=== PATIENT | female | born 1995 | race Caucasian/White ===

== ENCOUNTER 2016-11-25 02:56 | Emergency (ER) | payer BC ==
[~2016-11-25] VITALS: Ht 160 cm; Wt 34.5 kg
[2016-11-25 03:02] VITALS: TEMP 37.3; Ht 160 cm; Wt 34.5 kg
[2016-11-25] MEDS ORDERED: ONDANSETRON INJ 2 MG/ML 2 ML VIAL IV STA (03:42)
[2016-11-25] MEDS ORDERED: SODIUM CHLORIDE 0.9% 1000ML 1,000 ML IV STA ×2 (03:42→05:12)
[2016-11-25 03:45] VITALS: O2SAT 100
[2016-11-25 03:50] LABS: BASO % 0.1 %; BASO ABS # 0.01 K/uL (0-0.2); COMPLETE YES; EOS % 0.1 %; HEMATOCRIT 38.5 % (37-47); IG% 0.3 %; LYMPH % 9.9 %; LYMPH ABS # 1.23 K/uL (1.2-3.4); MEAN CELL VOLUME 84.4 fL (80-100); MEAN CORPUSCULAR HEMOGLOBIN 28.3 pg (25-34); MEAN CORPUSCULAR HGB CONC 33.5 g/dl (32-36); MEAN PLATELET VOLUME 10.7 fL (7.4-10.4); MONO % 7.6 %; PLATELET COUNT 163 K/uL (130-400); RED BLOOD COUNT 4.56 M/uL (4.2-5.4); WHITE BLOOD COUNT 12.43 K/uL (4.8-10.8)
[2016-11-25 03:59] LABS: ALT/SGPT 19 U/L (12-78); AST/SGOT 20 U/L (15-37); BLOOD UREA NITROGEN 10 mg/dl (7-18); CALCIUM 8.9 mg/dl (8.5-10.1); CARBON DIOXIDE 25 mmol/L (21-32); CHLORIDE 109 mmol/L (98-107); CREATININE 0.82 mg/dl (0.60-1.20); GLUCOSE 93 mg/dl (70-99); MAGNESIUM 2.1 mg/dl (1.8-2.4); POTASSIUM 3.2 mmol/L (3.5-5.1); SODIUM 144 mmol/L (136-145)
[2016-11-25 04:10] LABS: ALB/GLOB RATIO 1.1 (0.9-2); ALKALINE PHOSPHATASE 56 U/L (45-117); CKMB/CK RATIO 0.6 (0-3.0)
[2016-11-25] MEDS ORDERED: CLR10 PO (04:20)
[2016-11-25] MEDS ORDERED: MISC4CAP PO (04:20)
[2016-11-25] MEDS ORDERED: LANS30CA12 PO (04:20)
[2016-11-25 05:02] LABS: URINE APPEARANCE CLEAR (CLEAR); URINE BILIRUBIN NEG (NEG); URINE COLOR YELLOW; URINE EPITHELIAL CELL AUTO >30 /lpf (0-5); URINE NITRITE NEG (NEG); URINE SPECIFIC GRAVITY 1.022 (1.000-1.030); UROBILINOGEN NEG (NEG); ZZUR CULT IF INDIC CLEAN CATCH YES
[2016-11-25 05:06] LABS: MANUAL MICROSCOPIC REQUIRED? NO; REVIEW REQ? YES
[2016-11-25 05:20] LABS: BENZODIAZEPINE, URINE NEG (NEG); COCAINE,URINE NEG (NEG); PHENCYCLIDINE, URINE NEG (NEG)
[2016-11-25 06:31] VITALS: BP 106/67; PULSE 126; O2SAT 98
[2016-11-25] MEDS ORDERED: PHENERGAN 25MG HOMEPACK PO ONE (06:45)
[2016-11-25] MEDS ORDERED: AMOXICILLIN 250 MG CAP PO STA (06:47)
[2016-11-25] MEDS ORDERED: PROM1SUP19 PR (06:55)
--- NOTE | 2016-11-25 06:55 | EMERGENCY ROOM VISIT NOTE ---
History First contact with patient: 03:33 Chief Complaint: VOMITING Stated Complaint: VOMITING Nursing Triage Summary: Pt has been vomiting since 2299. History of Present Illness The patient is a 21 year old female who presents to the Emergency Department via EMS for evaluation of her nausea and vomiting. The patient reports a significant past medical history of intractable vomiting. Most recently, she is been treated for gastritis by [facility]. She reports she typically uses rectal Phenergan, but she does not have a prescription at this point. She developed nausea and vomiting 9 PM. She reports persistent symptoms since. She denies any blood in her vomit or stool. The patient complains of some mild discomfort in her epigastrium after vomiting. She rates her current discomfort as a 4/10. She denies any fevers, chills, headaches, chest pain, palpitations, shortness of breath, hematochezia, melena, hematuria, or dysuria. She denies any alcohol use or recent marijuana use. She denies any previous abdominal surgeries. Review of Systems A complete 10-point Review of Systems was discussed with the patient, with pertinent positives and negatives listed in the History of Present Illness. All remaining Review of Systems questions can be considered negative unless otherwise specified. Social History Smoking Status: Never Smoker Smokeless Tobacco Use: No Drug Use: none Marital Status: single Housing Status: lives with roommate Occupation Status: [employer] student Current/Historical Medications Scheduled Lansoprazole (Prevacid), 30 MG PO DAILY Loratadine (Claritin), 10 MG PO DAILY Probiotic Product (Align), 4 MG PO DAILY Scheduled PRN Promethazine (Phenergan Suppository), 25 MG NV Q4H PRN for Nausea Allergies Coded Allergies: Coconut (Verified Allergy, Intermediate, GI SYMPTOMS, 11/25/16) POLLEN (Verified Allergy, Intermediate, NASAL CONGESTION, 11/25/16) Physical Exam Vital Signs Date Time Temp Pulse Resp B/P Pulse Ox O2 Delivery O2 Flow Rate FiO2 11/25/16 06:31 126 18 106/67 98 Room Air 11/25/16 05:21 128 16 113/70 97 Room Air 11/25/16 03:58 114 11/25/16 03:57 114 17 116/72 100 Room Air 113 114/70 126 102/64 11/25/16 03:45 100 Room Air 11/25/16 03:02 37.3 110 18 126/81 99 Room Air Pain Rating (0-10): 4 Physical Exam VITAL SIGNS - Vital signs and nursing notes were reviewed. GENERAL - 21-year-old female appearing her stated age who is in no acute distress. Communicates well with provider and answers questions appropriately. LUNGS - Chest wall symmetric without accessory muscle use, intercostals retractions, or central cyanosis. Normal vesicular breath sounds CTA B/L. No wheezes, rales, or rhonchi appreciated. CARDIAC - RRR with S1/S2. No murmur, rubs, or gallops appreciated. ABDOMEN - Abdominal contour flat and without pulsations or visible masses. BS normoactive all four quadrants. Mild tenderness to palpation appreciated in the epigastrium. No guarding. No Rebound Tenderness. Negative Rovsing's. Negative Solis's. No palpable masses, hepatosplenomegaly, or ascites noted. PSYCH - A&Ox3 and cooperates fully with examiner. Pt is very pleasant and interacts well with examiner. Medical Decision & Procedures Laboratory Results 11/25/16 03:07 Red Blood Count 4.56, Mean Corpuscular Volume 84.4, Mean Corpuscular Hemoglobin 28.3, Mean Corpuscular Hemoglobin Concent 33.5, Mean Platelet Volume 10.7, Neutrophils (%) (Auto) 82.0, Lymphocytes (%) (Auto) 9.9, Monocytes (%) (Auto) 7.6, Eosinophils (%) (Auto) 0.1, Basophils (%) (Auto) 0.1, Neutrophils # (Auto) 10.19, Lymphocytes # (Auto) 1.23, Monocytes # (Auto) 0.95, Eosinophils # (Auto) 0.01, Basophils # (Auto) 0.01 11/25/16 03:07 Test 11/25/16 03:07 11/25/16 04:40 White Blood Count 12.43 K/uL (4.8-10.8) Red Blood Count 4.56 M/uL (4.2-5.4) Hemoglobin 12.9 g/dL (12.0-16.0) Hematocrit 38.5 % (37-47) Mean Corpuscular Volume 84.4 fL (80-100) Mean Corpuscular Hemoglobin 28.3 pg (25-34) Mean Corpuscular Hemoglobin Concent 33.5 g/dl (32-36) Platelet Count 163 K/uL (130-400) Mean Platelet Volume 10.7 fL (7.4-10.4) Neutrophils (%) (Auto) 82.0 % Lymphocytes (%) (Auto) 9.9 % Monocytes (%) (Auto) 7.6 % Eosinophils (%) (Auto) 0.1 % Basophils (%) (Auto) 0.1 % Neutrophils # (Auto) 10.19 K/uL (1.4-6.5) Lymphocytes # (Auto) 1.23 K/uL (1.2-3.4) Monocytes # (Auto) 0.95 K/uL (0.11-0.59) Eosinophils # (Auto) 0.01 K/uL (0-0.5) Basophils # (Auto) 0.01 K/uL (0-0.2) RDW Standard Deviation 40.5 fL (36.4-46.3) RDW Coefficient of Variation 13.2 % (11.5-14.5) Immature Granulocyte % (Auto) 0.3 % Immature Granulocyte # (Auto) 0.04 K/uL (0.00-0.02) Anion Gap 10.0 mmol/L (3-11) Est Creatinine Clear Calc Drug Dose 59.6 ml/min Estimated GFR () 119.4 Estimated GFR (Non- 103.0 BUN/Creatinine Ratio 12.0 (10-20) Calcium Level 8.9 mg/dl (8.5-10.1) Magnesium Level 2.1 mg/dl (1.8-2.4) Total Bilirubin 0.5 mg/dl (0.2-1) Aspartate Amino Transf (AST/SGOT) 20 U/L (15-37) Alanine Aminotransferase (ALT/SGPT) 19 U/L (12-78) Alkaline Phosphatase 56 U/L (45-117) Total Creatine Kinase 104 U/L (26-192) Creatine Kinase MB 0.6 ng/ml (0.5-3.6) Creatine Kinase MB Ratio 0.6 (0-3.0) Troponin I < 0.015 ng/ml (0-0.045) Total Protein 7.7 gm/dl (6.4-8.2) Albumin 4.0 gm/dl (3.4-5.0) Globulin 3.7 gm/dl (2.5-4.0) Albumin/Globulin Ratio 1.1 (0.9-2) Lipase 159 U/L (73-393) Thyroid Stimulating Hormone (TSH) 1.210 uIu/ml (0.300-4.500) Urine Color YELLOW Urine Appearance CLEAR (CLEAR) Urine pH 8.0 (4.5-7.5) Urine Specific [place] 1.022 (1.000-1.030) Urine Protein NEG (NEG) Urine Glucose (UA) NEG (NEG) Urine Ketones 3+ (NEG) Urine Occult Blood NEG (NEG) Urine Nitrite NEG (NEG) Urine Bilirubin NEG (NEG) Urine Urobilinogen NEG (NEG) Urine Leukocyte Esterase SMALL (NEG) Urine WBC (Auto) 5-10 /hpf (0-5) Urine RBC (Auto) 0-4 /hpf (0-4) Urine Hyaline Casts (Auto) 1-5 /lpf (0-5) Urine Epithelial Cells (Auto) >30 /lpf (0-5) Urine Bacteria (Auto) 1+ (NEG) Urine Renal Epithelial Cells 0-5 /lpf (0-5) Urine Test NEG (NEG) Urine Opiates Screen NEG (NEG) Urine Methadone, Qualitative NEG (NEG) Urine Barbiturates NEG (NEG) Urine Phencyclidine (PCP) Level NEG (NEG) Ur Amphetamine/Methamphetamine NEG (NEG) MDMA (Ecstasy) Screen NEG (NEG) Urine Benzodiazepines Screen NEG (NEG) Urine Cocaine Metabolite NEG (NEG) Urine Marijuana (THC) NEG (NEG) Date/Time Source Procedure Growth Status 11/25/16 04:40 Urine , Clean Catch Urine Culture - Final Lactobacillus Species Complete Medications Administered Medications (Trade) Dose Ordered Sig/Danette Route Start Time Stop Time Status Last Admin Dose Admin Sodium Chloride (Nss 1000ml) 1,000 ml @ 999 mls/hr Q1H1M STAT IV 11/25/16 03:42 11/25/16 04:42 DC 11/25/16 03:48 999 MLS/HR Ondansetron HCl 4 mg 4 mg NOW STAT IV 11/25/16 03:42 11/25/16 03:44 DC 11/25/16 03:49 4 MG Sodium Chloride (Nss 1000ml) 1,000 ml @ 999 mls/hr Q1H1M STAT IV 11/25/16 05:12 11/25/16 06:12 DC 11/25/16 05:21 999 MLS/HR Promethazine HCl (Phenergan 25MG Home Pack) 1 homepack UD ONCE PO 11/25/16 06:45 11/25/16 06:46 DC 11/25/16 06:51 1 HOMEPACK Amoxicillin (Amoxil Cap) 500 mg NOW STAT PO 11/25/16 06:47 11/25/16 06:48 DC 11/25/16 06:51 500 MG Procedure Patient was placed on the pan pusher and monitored throughout the entire extent of their stay. In addition, the patient's pulse oximetry was monitored throughout the entire stay. Any abnormalities or aberrancies were addressed appropriately. ECG Indication: other (near syncope) Rate (beats per minute): 113 Rhythm: sinus tachycardia Findings: no acute ischemic change, no ectopy Comparison ECG Date: no prior available ED Course Patient was seen and evaluated by myself. Labs were drawn, saline lock in place. The patient was hydrated with 1000 mL normal saline bolus. The patient was treated with 4 mg Zofran intravenously for nausea. Laboratory results demonstrate a mild leukocytosis. The patient is not anemic. There are no significant electrolyte abnormalities. Urinalysis is not suggestive infection. Urine tox screen is negative. The patient was hydrated with an additional 1000 mL of normal saline. She has had no vomiting throughout her stay in the emergency department. She feels better at this point. The patient was provided a home pack for Phenergan. She will follow-up with [facility] from today's visit. She will return for any changing or worsening symptoms. Patient discharged home afebrile and in good condition. Medical Decision Given the patient's presentation and stated complaints, I did elect to perform the above-mentioned workup. The patient resents today with nausea and vomiting. She has a history of intractable nausea and vomiting. She's been treated most recently for gastritis. She has no fever. Her abdomen is soft and nontender to palpation. Her labs are otherwise unremarkable. She responded well to IV fluid hydration and Zofran. She was provided Phenergan for home which she has used in the past. The patient will follow-up with her primary care provider in specialist from today's visit. She will return for any changing or worsening symptoms. Patient discharged home in good condition. In the evaluation and treatment of this patient, the following differential diagnoses were considered: Appendicitis, Diverticulitis, Diverticulosis, Colitis , Ischemic Colitis, Inflammatory Bowel Disease, Irritable Bowel Disease, Ovarian Torsion, Kidney Stone, Pyelonephritis, Hydronephrosis, Cholecystitis, Ascending Cholangitis, Choledocholithiasis, GERD. Impression Primary Impression: Nausea & vomiting Additional Impression: Near syncope Departure Information Dispostion Home / Self-Care Condition GOOD Prescriptions Promethazine (Phenergan Suppository) 25 Mg Supp 25 MG NV Q4H Y for Nausea for 3 Days, #18 SUPP Prov: Justice Harley, SHARATH 11/25/16 Referrals [facility] (PCP) Patient Instructions ED Nausea Vomiting, My [facility] Additional Instructions You have been treated in the Emergency Department your Nausea and Vomiting. You have been prescribed Phenergan to be used for any nausea or vomiting. Take as prescribed. For pain control, you can use the following [id number] medicines (if >12 yo): - Regular strength (325mg/tab) Tylenol (acetaminophen) 2 tabs every 4-6 hours as needed. Do not exceed 12 tablets in a 24 hour period. Avoid taking more than 4 grams (4000 mg) of Tylenol per day. This includes any other sources of acetaminophen you may take on a regular basis. - Regular strength (200 mg/tab) Advil (ibuprofen) 1-2 tabs every 4-6 hours as needed. Do not exceed a dose of 3200 mg per day. Drink plenty of water and stay well hydrated. As with any trip to the Emergency Department, you should follow-up with your Primary Care Provider from today's visit. Return to the emergency department if your symptoms persist despite treatment plan outlined above or if the following symptoms occur: increased fevers, chills , worsening nausea/vomiting, blood in your stool or urine. Problem Qualifiers Primary Impression: Nausea & vomiting Vomiting type: unspecified Vomiting Intractability: non-intractable Qualified Codes: R11.2 - Nausea with vomiting, unspecified
== END 2016-11-25 07:00 | disposition home or self-care (01) ==
LOC: EDBD 02:56 → C.EDB 02:58
DX: R11.2 Nausea with vomiting, unspecified (principal); R55 Syncope and collapse; Z79.899 Other long term (current) drug therapy